=== PATIENT | female | born 1965 | race African-American/Black ===

== ENCOUNTER 2019-06-18 11:59 | Emergency (ER) | payer OTHER ==
[~2019-06-18] VITALS: Ht 170.2 cm; Wt 85.0 kg
[2019-06-18] MEDS ORDERED: ALBU6.7H9 IH (12:06)
[2019-06-18] MEDS ORDERED: HYDROCODONE/ACETAMINOPHEN 5/325MG TABLET PO ONE ×2 (12:30→17:15)
[2019-06-18] MEDS ORDERED: MORPHINE SULFATE 4 MG/ML CPJ (NOT FOR IM USE) IV STA (13:09)
[2019-06-18] MEDS ORDERED: PROPOFOL 200MG/20ML VIAL IV ONE (13:15)
[2019-06-18] MEDS ORDERED: LISINOPRIL 20MG TABLET PO ONE (17:15)
[2019-06-18 17:43] VITALS: BP 206/80
== END 2019-06-18 17:47 | disposition home or self-care (01) ==
LOC: ER 11:59
DX: S53.124A Posterior dislocation of right ulnohumeral joint, initial encounter (principal); J44.9 Chronic obstructive pulmonary disease, unspecified; Z79.899 Other long term (current) drug therapy; W18.39XA Other fall on same level, initial encounter; Y93.89 Activity, other specified; Y92.89 Other specified places as the place of occurrence of the external cause; Y99.8 Other external cause status
CPT/HCPCS: 24600; 73070; 73080; 96374; 99152; 99285; J2270; J2704

== ENCOUNTER 2020-03-30 11:34 | Emergency (ER) | payer OTHER ==
[~2020-03-30] VITALS: Ht 162.6 cm; Wt 81.0 kg
[~2020-03-30 11:34] MED LIST: ALBU6.7H9 IH
[2020-03-30] MEDS ORDERED: KETOROLAC 30MG/ML VIAL IM ONE (12:30)
[2020-03-30] MEDS ORDERED: HYDROCODONE/ACETAMINOPHEN 5/325MG TABLET PO ONE (12:30)
[2020-03-30 13:40] VITALS: BP 145/84
== END 2020-03-30 13:51 | disposition home or self-care (01) ==
LOC: ER 11:50
DX: M25.512 Pain in left shoulder (principal); M79.671 Pain in right foot; J44.9 Chronic obstructive pulmonary disease, unspecified
CPT/HCPCS: 73030; 73060; 73610; 73630; 96372; 99284; J1885

== ENCOUNTER 2020-09-20 11:48 | Emergency (ER) | payer MEDICAID, OTHER ==
[~2020-09-20] VITALS: Ht 167.6 cm; Wt 81.0 kg
[2020-09-20] MEDS ORDERED: SODIUM CHLORIDE 0.9% 1,000 ML IV ONE (13:00)
[2020-09-20 14:39] LABS: CLARITY URINE CLOUDY (CLEAR); COLOR URINE YELLOW (YELLOW); KETONES URINE NEGATIVE (NEGATIVE); LEUKOCYTE ESTERASE URINE 1+ (NEGATIVE); NITRITE URINE POSITIVE (NEGATIVE); OCCULT BLOOD URINE NEGATIVE (NEGATIVE); PROTEIN URINE NEGATIVE (NEGATIVE); SPECIFIC GRAVITY URINE 1.012 (1.005-1.030); UROBILINOGEN URINE 0.2 E.U./dL (0.2-1.0)
[2020-09-20 15:03] LABS: OPIATES URINE SCREEN NEGATIVE (NEGATIVE)
[2020-09-20 15:04] LABS: *AMPHETAMINES SCREEN URINE NEGATIVE (NEGATIVE); *BARBITURATES SCREEN URINE NEGATIVE (NEGATIVE); *BENZODIAZEPINES SCREEN URINE NEGATIVE (NEGATIVE); *COCAINE SCREEN URINE NEGATIVE (NEGATIVE); CANNABINOID URINE SCREEN NEGATIVE (NEGATIVE); PHENCYCLIDINE URINE SCREEN NEGATIVE (NEGATIVE)
[2020-09-20 15:05] LABS: METHADONE URINE SCREEN NEGATIVE (NEGATIVE)
[2020-09-20 15:08] LABS: BASOPHILS % 0.6 % (0.0-2.0); HEMATOCRIT. 37.7 % (36.0-48.0); HEMOGLOBIN. 12.1 g/dL (12.0-16.0); LYMPHOCYTES % 33.9 % (20.0-50.0); MEAN CORPUSCULAR VOLUME 83.8 fL (81.0-99.0); MEAN PLATELET VOLUME 8.1 fl (7.4-10.4); MONOCYTES % 5.1 % (2.0-8.0); NEUTROPHILS % 57.4 % (40.0-76.0); PLATELET 255 x1000/uL (130-400); RED CELL DISTRIBUTION WIDTH 15.8 % (11.6-14.6)
[2020-09-20 15:16] LABS: CHLORIDE 108 mEq/L (98-107)
[2020-09-20 15:19] LABS: ETHANOL BLOOD < 10 mg/dL
[2020-09-20 16:00] VITALS: BP 128/76
== END 2020-09-20 16:10 | disposition home or self-care (01) ==
LOC: ER 11:48
DX: N39.0 Urinary tract infection, site not specified (principal); R42 Dizziness and giddiness
CPT/HCPCS: 36415; 70450; 71045; 80053; 80305; 80320; 81003; 85025; 87077; 87086; 87186; 93005; 96360; 99285; J7030; Z7610; G0480

== ENCOUNTER 2024-03-18 08:56 | Inpatient (IN) | payer MEDICAID, OTHER ==
[~2024-03-18] VITALS: Ht 167.6 cm; Wt 97.1 kg
[~2024-03-18 08:56] MED LIST changes: +ALBU6.7H3 IH; -ALBU6.7H9 IH
[2024-03-18 09:34] LABS: BASOPHILS % 0.4 % (0.0-2.0); EOSINOPHILS % 0.8 % (0.0-5.0); HEMATOCRIT. 39.6 % (36.0-48.0); HEMOGLOBIN. 13.2 g/dL (12.0-16.0); LYMPHOCYTES % 26.1 % (20.0-50.0); MEAN CORPUSCULAR HEMOGLOBIN 27.1 pg (28.0-32.0); MEAN CORPUSCULAR HGB CONC 33.4 g/dL (31.0-37.0); MEAN PLATELET VOLUME 7.8 fl (7.4-10.4); MONOCYTES % 5.6 % (2.0-8.0); NEUTROPHILS % 67.1 % (40.0-76.0); PLATELET 341 x1000/uL (130-400); RED BLOOD CELL COUNT 4.89 mill/uL (4.2-5.4); RED CELL DISTRIBUTION WIDTH 15.6 % (11.6-14.6); WHITE BLOOD COUNT 12.6 x1000/uL (4.5-11.0)
[2024-03-18 09:39] VITALS: PULSE 72; RESP 18; O2SAT 98
[2024-03-18] MEDS: IPRATROPIUM BROMIDE (0.02%) 0.5MG/2.5ML NEB HHN STA (09:39)
[2024-03-18] MEDS: MAGNESIUM 2 G PREMIX 50 ML IV ONE (09:52)
[2024-03-18] MEDS: METHYLPREDNISOLONE SOD SUCC 125MG/2ML (ACT-O-VIAL) IV STA (09:52)
[2024-03-18 10:02] VITALS: PULSE 65; RESP 16; O2SAT 100
[2024-03-18] MEDS: ALBUTEROL (0.083%) 2.5MG/3ML NEB HHN SCH (10:02)
[2024-03-18 10:42] VITALS: PULSE 66; RESP 16; O2SAT 96
[2024-03-18 11:15] LABS: CARBON DIOXIDE 20 mEq/L (21-32); CHLORIDE 108 mEq/L (98-107); POTASSIUM 3.9 mEq/L (3.5-5.1); SODIUM 138 mEq/L (136-145)
[2024-03-18 11:16] LABS: CALCIUM 10.4 mg/dL (8.7-10.4)
[2024-03-18 11:20] LABS: CREATININE 0.8 mg/dL (0.6-1.0)
[2024-03-18 11:21] LABS: GLUCOSE 102 mg/dL (70-105); UREA NITROGEN BLOOD 13 mg/dL (9-23)
[2024-03-18 11:22] LABS: ALANINE AMINOTRANSFERASE 18 IU/L (10-49); ALBUMIN 4.4 g/dL (3.2-4.8); ASPARTATE AMINOTRANSFERASE 15 IU/L (<34)
[2024-03-18 11:23] LABS: BILIRUBIN TOTAL 0.2 mg/dL (0.1-1.0); PROTEIN TOTAL 7.6 g/dL (6.0-8.3)
[2024-03-18 11:27] LABS: TROPONIN I HIGH SENSITIVITY < 4 ng/L (3.0-34)
[2024-03-18] MEDS: CEFTRIAXONE 1GM/50ML 50 ML IV ONE (12:02)
[2024-03-18 12:08] VITALS: PULSE 69; RESP 18; O2SAT 98
[2024-03-18] MEDS: ALBUTEROL (0.083%) 2.5MG/3ML NEB HHN ONE (12:08)
[2024-03-18 23:30] VITALS: BP 138/72; PULSE 85; RESP 20; TEMP 97.1
[2024-03-18] MEDS ORDERED: HYDROCODONE/ACETAMINOPHEN 5/325MG TABLET PO PRN (23:45)
[2024-03-18] MEDS ORDERED: HYDR-4009 MT (23:59)
[2024-03-18] MEDS ORDERED: BUDE6.9H INH (23:59)
[2024-03-18] MEDS ORDERED: ATOR10TA69 MT (23:59)
[2024-03-18] MEDS ORDERED: METO25TA6 MT (23:59)
[2024-03-18] MEDS ORDERED: SERT25TA MT (23:59)
[2024-03-18] MEDS ORDERED: ALBU6.7H15 INH (23:59)
[2024-03-18] MEDS ORDERED: ASPI-1497 MT (23:59)
[2024-03-18] MEDS ORDERED: CLOP-31 MT (23:59)
[2024-03-19] VITALS (12 sets, daily range): BP systolic 109–148; BP diastolic 67–84; PULSE 72–85; RESP 16–20; TEMP 97.5–98.7; O2SAT 95–96
[2024-03-19] MEDS: TRAZODONE HCL 50MG TABLET PO SCH (00:50)
[2024-03-19] MEDS: METHYLPREDNISOLONE SOD SUCC 40MG/ML (ACT-O-VIAL) IV SCH (00:50)
[2024-03-19] MEDS: IPRATROPIUM/ALBUTEROL 0.5-3(2.5)MG/3ML NEB HHN SCH (00:54)
[2024-03-19 05:57] LABS: BASOPHILS % 0.1 % (0.0-2.0); HEMATOCRIT. 38.6 % (36.0-48.0); HEMOGLOBIN. 12.6 g/dL (12.0-16.0); LYMPHOCYTES % 10.4 % (20.0-50.0); MEAN CORPUSCULAR HEMOGLOBIN 26.3 pg (28.0-32.0); MEAN CORPUSCULAR HGB CONC 32.6 g/dL (31.0-37.0); MEAN CORPUSCULAR VOLUME 80.8 fL (81.0-99.0); MONOCYTES % 2.6 % (2.0-8.0); NEUTROPHILS % 86.9 % (40.0-76.0); PLATELET 348 x1000/uL (130-400); RED BLOOD CELL COUNT 4.78 mill/uL (4.2-5.4); RED CELL DISTRIBUTION WIDTH 15.7 % (11.6-14.6); WHITE BLOOD COUNT 13.7 x1000/uL (4.5-11.0)
[2024-03-19 06:02] LABS: CHLORIDE 106 mEq/L (98-107); POTASSIUM 4.3 mEq/L (3.5-5.1); SODIUM 135 mEq/L (136-145)
[2024-03-19 06:03] LABS: CARBON DIOXIDE 23 mEq/L (21-32)
[2024-03-19 06:08] LABS: CREATININE 0.6 mg/dL (0.6-1.0); GLUCOSE 194 mg/dL (70-105); UREA NITROGEN BLOOD 15 mg/dL (9-23)
[2024-03-19 06:10] LABS: ALANINE AMINOTRANSFERASE 15 IU/L (10-49); ALBUMIN 4.2 g/dL (3.2-4.8); ASPARTATE AMINOTRANSFERASE 11 IU/L (<34)
[2024-03-19 06:11] LABS: BILIRUBIN TOTAL 0.2 mg/dL (0.1-1.0)
[2024-03-19] MEDS: ASPIRIN 81MG EC TABLET PO SCH (08:44)
[2024-03-19] MEDS: AMLODIPINE 5MG TABLET PO SCH (08:44)
[2024-03-19] MEDS: ENOXAPARIN 30MG/0.3ML SYR SUBCUT SCH (08:45)
[2024-03-19] MEDS ORDERED: KETOROLAC 10MG TABLET PO PRN (09:00)
[2024-03-19] MEDS ORDERED: ATORVASTATIN CALCIUM 10MG TABLET PO SCH (09:30)
[2024-03-19] MEDS ORDERED: CLOPIDOGREL 75MG TABLET PO SCH (09:30)
[2024-03-19] MEDS: CLOPIDOGREL 75MG TABLET PO NR (10:16)
[2024-03-19] MEDS: METOPROLOL TARTRATE 25MG TABLET PO NR (10:16)
[2024-03-19] MEDS: KETOROLAC 10MG TABLET PO NR (10:18)
[2024-03-19] MEDS ORDERED: NALOXONE HCL 0.4MG/ML VIAL IV PRN (11:45)
[2024-03-19] MEDS: NITROGLYCERIN OINT 1GM/INCH UDPKT TD SCH (13:18)
[2024-03-19] MEDS: NICOTINE 21MG PATCH TD SCH (15:07)
[2024-03-19] MEDS ORDERED: TRAZODONE HCL 50MG TABLET PO SCH (21:00)
[2024-03-19] MEDS: ATORVASTATIN CALCIUM 20MG TABLET PO SCH (21:27)
[2024-03-19] MEDS: METOPROLOL TARTRATE 25MG TABLET PO SCH (21:28)
[2024-03-20] VITALS (9 sets, daily range): BP systolic 133–145; BP diastolic 73–89; PULSE 67–85; RESP 15–20; TEMP 97.6–98.6; O2SAT 96–97
[2024-03-20 07:06] LABS: BASOPHILS % 0.2 % (0.0-2.0); CARBON DIOXIDE 25 mEq/L (21-32); CHLORIDE 104 mEq/L (98-107); HEMATOCRIT. 37.4 % (36.0-48.0); LYMPHOCYTES % 9.4 % (20.0-50.0); MEAN CORPUSCULAR HEMOGLOBIN 26.6 pg (28.0-32.0); MEAN CORPUSCULAR HGB CONC 32.2 g/dL (31.0-37.0); MEAN CORPUSCULAR VOLUME 82.8 fL (81.0-99.0); MEAN PLATELET VOLUME 8.1 fl (7.4-10.4); MONOCYTES % 3.7 % (2.0-8.0); NEUTROPHILS % 86.7 % (40.0-76.0); PLATELET 341 x1000/uL (130-400); POTASSIUM 4.6 mEq/L (3.5-5.1); RED BLOOD CELL COUNT 4.52 mill/uL (4.2-5.4); RED CELL DISTRIBUTION WIDTH 15.6 % (11.6-14.6); SODIUM 135 mEq/L (136-145); WHITE BLOOD COUNT 17.3 x1000/uL (4.5-11.0)
[2024-03-20 07:07] LABS: CALCIUM 10.4 mg/dL (8.7-10.4)
[2024-03-20 07:11] LABS: CREATININE 0.9 mg/dL (0.6-1.0); GLUCOSE 221 mg/dL (70-105)
[2024-03-20 07:12] LABS: UREA NITROGEN BLOOD 21 mg/dL (9-23)
[2024-03-20 07:14] LABS: PHOSPHORUS 3.7 mg/dL (2.5-4.9)
[2024-03-20 07:17] LABS: TROPONIN I HIGH SENSITIVITY < 4 ng/L (3.0-34)
[2024-03-20] MEDS: CLOPIDOGREL 75MG TABLET PO SCH (08:54)
[2024-03-20] MEDS: SERTRALINE HCL 25MG TABLET PO SCH (08:54)
[2024-03-20] MEDS ORDERED: P20 MT (12:32)
[2024-03-20] MEDS ORDERED: NICO-645 TP (12:32)
[2024-03-20] MEDS ORDERED: ALBU6.7H15 INH (12:32)
[2024-03-20] MEDS ORDERED: AMLO5TAB88 PO (12:32)
[2024-03-20] MEDS ORDERED: FAMO20TA8 MT (12:32)
[2024-03-20] MEDS: BUDESONIDE 0.5MG/2ML NEB HHN SCH (12:36)
[2024-03-20] MEDS: METHYLPREDNISOLONE SOD SUCC 40MG/ML (ACT-O-VIAL) IV SCH (21:34)
[2024-03-21] VITALS: BP 130/89; PULSE 89; RESP 18; TEMP 97
[2024-03-21 00:35] VITALS: PULSE 74; RESP 18; O2SAT 96
[2024-03-21 04:25] VITALS: PULSE 77; RESP 18; O2SAT 96
[2024-03-21 06:00] VITALS: BP_SYST 151; BP_SYST 156; BP_DIAS 68; BP_DIAS 80; PULSE 80; PULSE 84; RESP 18; RESP 19; TEMP 97.6; TEMP 97.8
[2024-03-21 07:36] LABS: BASOPHILS % 0.2 % (0.0-2.0); HEMATOCRIT. 37.6 % (36.0-48.0); HEMOGLOBIN. 12.3 g/dL (12.0-16.0); LYMPHOCYTES % 8.4 % (20.0-50.0); MEAN CORPUSCULAR HEMOGLOBIN 26.8 pg (28.0-32.0); MEAN CORPUSCULAR HGB CONC 32.7 g/dL (31.0-37.0); MEAN PLATELET VOLUME 8.4 fl (7.4-10.4); MONOCYTES % 3.1 % (2.0-8.0); NEUTROPHILS % 88.3 % (40.0-76.0); PLATELET 330 x1000/uL (130-400); RED BLOOD CELL COUNT 4.59 mill/uL (4.2-5.4); RED CELL DISTRIBUTION WIDTH 15.5 % (11.6-14.6); WHITE BLOOD COUNT 16.8 x1000/uL (4.5-11.0)
[2024-03-21 07:47] LABS: CALCIUM 10.2 mg/dL (8.7-10.4); CHLORIDE 99 mEq/L (98-107); POTASSIUM 5.2 mEq/L (3.5-5.1); SODIUM 130 mEq/L (136-145)
[2024-03-21 07:48] LABS: CARBON DIOXIDE 23 mEq/L (21-32)
[2024-03-21 07:53] LABS: CREATININE 0.9 mg/dL (0.6-1.0); GLUCOSE 349 mg/dL (70-105); UREA NITROGEN BLOOD 16 mg/dL (9-23)
[2024-03-21 08:47] LABS: TROPONIN I HIGH SENSITIVITY < 4 ng/L (3.0-34)
[2024-03-21 10:50] VITALS: PULSE 74; RESP 20; O2SAT 100
[2024-03-21 12:52] VITALS: BP 135/85; PULSE 83; TEMP 97.6; O2SAT 96
== END 2024-03-21 14:05 | disposition home or self-care (01) | DRG 140 ==
LOC: ER 08:56 → 5WST 13:17 → 6WST 22:43 → 8WST 03-19 11:33
PROVIDERS: ADMIT Internal Medicine; ATTEND Internal Medicine
DX: J44.1 Chronic obstructive pulmonary disease with (acute) exacerbation (principal); J96.21 Acute and chronic respiratory failure with hypoxia; I50.32 Chronic diastolic (congestive) heart failure; I11.0 Hypertensive heart disease with heart failure; D72.829 Elevated white blood cell count, unspecified; I25.10 Atherosclerotic heart disease of native coronary artery without angina pectoris; E78.5 Hyperlipidemia, unspecified; F17.210 Nicotine dependence, cigarettes, uncomplicated; F32.A Depression, unspecified; F41.9 Anxiety disorder, unspecified; I25.2 Old myocardial infarction; Z79.02 Long term (current) use of antithrombotics/antiplatelets; Z79.51 Long term (current) use of inhaled steroids; Z79.82 Long term (current) use of aspirin; Z79.899 Other long term (current) drug therapy; Z95.5 Presence of coronary angioplasty implant and graft; Z99.81 Dependence on supplemental oxygen; Z88.8 Allergy status to other drugs, medicaments and biological substances
CPT/HCPCS: 36415; 71045; 80048; 80053; 83735; 83880; 84100; 84484; 85025; 85379; 93005; 93306; 94640; 99285; J0696; J1650; J2920; J2930; J3475; J7626